=== PATIENT | female | born 1995 | race Caucasian/White ===

== ENCOUNTER 2019-07-27 13:00 | Emergency (ER) | payer OTHER, SELFPAY ==
--- NOTE | ~2019-07-27 | CT_ITS ---
EXAMINATION: CT lumbar spine wo con DATE: 07/27/2019 15:19 INDICATION: Back pain and sharp right leg pain. TECHNIQUE: Computed tomography (CT) of the lumbar spine was performed without intravenous contrast. A utomated exposure control and iterative reconstruction technique were employed. The dose-length produ ct was 1349.79 mGy-cm. COMPARISON: None FINDINGS: Mild lumbar levocurvature. Vertebral body heights are normal. No fractures. Mild disc height loss at 304 and L5-S1. Paravertebral soft tissues are unremarkable. Small amount of likely physiologic free f luid in the cul-de-sac. The following disc levels are specifically discussed: T11-T12: The disc does not extend beyond the endplate margin. There is mild bilateral facet joint ost eoarthritis. There is no neural foraminal stenosis. There is no central canal stenosis. T12-L1: The disc does not extend beyond the endplate margin. There is minimal bilateral facet joint o steoarthritis. There is no neural foraminal stenosis. There is no central canal stenosis. L1-L2: The disc does not extend beyond the endplate margin. There is mild bilateral facet joint osteo arthritis. There is no neural foraminal stenosis. There is no central canal stenosis. L2-L3: Disc is minimally bulging. There is mild bilateral facet joint osteoarthritis. There is no antonio ral foraminal stenosis. There is no central canal stenosis. L3-L4: Disc is mildly bulging. There is mild bilateral facet joint osteoarthritis. There is no neural foraminal stenosis. There is mild central canal stenosis. L4-L5: Disc is bulging. There is mild bilateral facet joint osteoarthritis. There is mild bilateral n eural foraminal stenosis. There is mild central canal stenosis. L5-S1: Disc is bulging with disc extrusion and left-sided predominant disc osteophyte complex with as sociated posterior S1 superior endplate Schmorl's node and retropulsion of a portion of the left post erior wall of the S1 vertebral body. There is mild right and minimal left facet joint osteoarthritis. There is mild bilateral neural foraminal stenosis. There is mild central canal stenosis along with m ild stenosis of the left lateral recess. IMPRESSION: 1. Mild lumbar levocurvature with mild spondylosis. Reviewed, dictated and finalized at location A. [employer]
[2019-07-27 13:07] VITALS: BP 146/64; PULSE 80; RESP 18; TEMP 36.6; O2SAT 100
[2019-07-27] MEDS: KETOROLAC (*BKC) 60 MG/2 ML VIAL IM (13:52)
[2019-07-27 14:42] VITALS: TEMP 36.6
--- NOTE | 2019-07-27 15:25 | ED.BACK ---
HPI - Back Pain/Injury General Chief Complaint: Back Pain/Injury Stated Complaint: leg pain Time Seen by Provider: 07/27/19 13:26 Source: patient Mode of arrival: EMS Limitations: no limitations History of Present Illness HPI Narrative: This is a 24 year old female that presents to the ER via EMS for low back pain since this morning. Reports it has been bothering her intermittently for the last week. Reports sudden onset sharp right sided low back pain this morning. No known injury or trauma. Reports the pain radiates down her right leg. Denies fever, saddle anesthesia, bowel/bladder incontinence, or numbness. Related Data Allergies Allergy/AdvReac Type Severity Reaction Status Date / Time No Known Allergies Allergy Verified 07/27/19 13:10 Review of Systems Review of Systems: Narrative: CONSTITUTIONAL: Denies fever MUSCULOSKELETAL: Reports back pain, joint pain, and myalgia. NEUROLOGIC: Denies numbness, or weakness. All systems reviewed & are unremarkable except as noted in HPI and below PMFSH Past Medical History Medical History (Updated 07/27/19 @ 16:01 by Chelly Waller PA-C) History of obesity Social History Social History (Updated 07/27/19 @ 15:59 by Chelly Waller PA-C) Substance use: never Exam Narrative: Exam Narrative: GENERAL: Well-appearing, well-nourished, and in no acute distress. HEAD: Normocephalic, atraumatic. EYES: EOMI. CHEST: Clear to auscultation. No respiratory distress. No wheezes rales or rhonchi HEART: Regular rate and rhythm. No murmur heard. Normal peripheral pulses. BACK: No midline spinal tenderness EXTREMITIES: Normal range of motion. No edema. Strength equal in bilateral lower extremities (5/5). Normal patellar reflexes bilaterally SKIN: Warm, dry, no rash. NEURO: No focal deficits. Alert and oriented x3. Normal gait PSYCH: Normal mood and affect Course Vital Signs Vital signs: Vital Signs Temperature 97.9 F 07/27/19 13:07 Pulse Rate 80 07/27/19 13:07 Respiratory Rate 18 07/27/19 13:07 Blood Pressure 146/64 H 07/27/19 13:07 Pulse Oximetry 100 07/27/19 13:07 Temperature 97.9 F 07/27/19 14:42 Pulse Rate 80 07/27/19 13:07 Respiratory Rate 18 07/27/19 13:07 Blood Pressure 146/64 H 07/27/19 13:07 Pulse Oximetry 100 07/27/19 13:07 MDM - Back Pain/Injury MDM Narrative Medical decision making narrative: Patient presents the emergency department for low back pain since this morning. She is afebrile and nontoxic-appearing. She is neurologically intact. Lumbar spine CT shows mild lumbar levocurvature with mild spondylosis. Patient was updated on case findings. She was given a dose of Toradol and Valium with improvement. She is to follow-up with her primary care doctor. She is given warnings to return to the ER Lab Data Labs: UCG Bedside Result Negative Reference Range: Negative Imaging Data Radiologist's impression: ITS Impressions Lumbar Spine CT 07/27/19 15:22 IMPRESSION: 1. Mild lumbar levocurvature with mild spondylosis. Critical Care Time Critical Care Time Critical Care Time: No Discharge Plan Discharge Clinical Impression: Lumbar radiculopathy Patient Disposition: Home, Self-Care Condition: Stable Instructions: Lumbar Radiculopathy (ED) Additional Instructions: Return to the ER if you experience weakness, numbness, bowel/bladder incontinence, or any other symptoms that are concerning to you Rest, use ice/heat, take anti-inflammatories (Aleve, Ibuprofen, Naproxen, etc) or Tylenol as needed for pain as well as muscle relaxer (Diazepam) as needed for pain. Muscle relaxers can make you drowsy, do not drive if you take this. Take steroid as prescribed Follow up with your primary care doctor Prescriptions: New diazepam 5 mg tablet 5 mg PO BID PRN (Reason: muscle spasm) Qty: 10 RF: 0 methylprednisolone [Medrol (Jt)] 4 mg tablets,dose pack See Rx Ins
[2019-07-27 16:19] VITALS: BP 156/87; PULSE 94; TEMP 36.6; O2SAT 98
== END 2019-07-27 16:33 | disposition home or self-care (01) ==
PROVIDERS: Emergency Provider Emergency Medicine
DX: M47.26 Other spondylosis with radiculopathy, lumbar region (principal); E66.9 Obesity, unspecified; Z68.41 Body mass index [BMI] 40.0-44.9, adult
CPT/HCPCS: 72131; 81025; 96372; 99284; J1885; J3360

== ENCOUNTER 2020-12-22 11:08 | Emergency (ER) | payer OTHER, SELFPAY ==
--- NOTE | ~2020-12-22 | US_ITS ---
EXAMINATION: US OB <=14 wk fetus w TV DATE: 12/22/2020 14:20 INDICATION: First trimester vaginal bleeding. TECHNIQUE: Real-time transabdominal and transvaginal pelvic ultrasound was performed. COMPARISON: Ultrasound 05/16/2018 FINDINGS: TRANSABDOMINAL ULTRASOUND: The uterus measures 7.7 x 3.7 x 4.8 cm. TRANSVAGINAL ULTRASOUND: The endometrial complex measures 10 mm in thickness. There is no visible int rauterine gestational sac. The right ovary measures 2.7 x 1.9 x 1.7 cm. The left ovary measures 2.2 x 1.6 x 2.2 cm. There is trace free fluid in the pelvis. IMPRESSION: 1. No visible intrauterine gestational sac, which may be normal in early . Spontaneous abor tion and ectopic are not excluded. Serial beta hCGs are recommended. Reviewed, dictated and finalized at location A. IMPRESSION: 1. No visible intrauterine gestational sac, which may be normal in early pregn clyde. Spontaneous and ectopic are not excluded. Serial beta hCGs are recommended.
[2020-12-22 11:38] VITALS: BP 148/96; PULSE 70; RESP 16; TEMP 36.8; O2SAT 100
[2020-12-22 12:44] LABS: Basophils Percent Auto 0.2 % (0.2-1.2); Eosinophils Absolute Auto 0.1 K/mm3 (0-0.3); Eosinophils Percent Auto 1.6 % (0-4.4); Hematocrit 35.8 % (37.0-47.0); Hemoglobin 11.1 g/dL (12.0-15.0); Immature Granulocyte Absolute 0.04 K/mm3 (0.00-0.031); Immature Granulocyte Percent A 0.5 % (0-0.5); Lymphocytes Absolute Auto 2.44 K/mm3 (0.9-3.2); Lymphocytes Percent Auto 27.6 % (18.3-44.2); Mean Corpuscular Hemoglobin 26.3 pg (26-34); Mean Corpuscular Volume 84.8 fl (80-100); Mean Platelet Volume 9.3 fl (7.4-10.4); Monocytes Absolute Auto 0.6 K/mm3 (0.1-0.6); Monocytes Percent Auto 6.8 % (2.6-8.5); Neutrophils Absolute Auto 5.6 K/mm3 (1.3-6.7); Neutrophils Percent Auto 63.3 % (45.5-73.1); Platelet Count Result 340 k/mm3 (150-375); Red Blood Count 4.22 M/mm3 (4.2-5.4); Red Cell Distribution Width 13.7 % (11.5-14.5); White Blood Count 8.8 K/mm3 (4.5-10.0)
--- NOTE | 2020-12-22 13:01 | ED.FEMALEGU ---
HPI - Female Genitourinary General Chief complaint: Vaginal Bleeding Stated complaint: poss miscarriage Time Seen by Provider: 12/22/20 12:09 Source: patient Mode of arrival: ambulatory Limitations: no limitations History of Present Illness HPI Narrative: Patient is a 25-year-old female who presents complaining of vaginal bleeding starting last p.m. Patient reports positive test on Sunday and scheduled in 3 weeks for 8-week appointment at [facility]. Patient reports noticing pink when she wiped yesterday and woke up with moderate amount of blood in underwear. She denies cramping. She denies all other complaints at this time. Patient is a G2, P1 and sees [facility]. MD elicited complaint: vaginal discharge and possible miscarriage Related Data Allergies Allergy/AdvReac Type Severity Reaction Status Date / Time No Known Allergies Allergy Verified 12/22/20 11:51 Review of Systems Review of Systems: Narrative: CONSTITUTIONAL: Denies fever, chills, or sweats. EYES: Denies visual changes, redness, or discharge. ENT: Denies rhinorrhea, congestion, sore throat, or otalgia. CARDIOVASCULAR: Denies chest pain, palpitations, or edema. RESPIRATORY: Denies cough or dyspnea. GASTROINTESTINAL: Denies abdominal pain, nausea, vomiting, or diarrhea. GENITOURINARY: Reports vaginal bleeding SKIN: Denies rash or itching. MUSCULOSKELETAL: Denies back pain, joint pain, or myalgia. NEUROLOGIC: Denies headache, numbness, dizziness, or weakness. PSYCHIATRIC: Denies anxiety or depression. PMFSH Past Medical History Medical History History of obesity Social History Social History (Updated 12/22/20 @ 13:04 by NATE Gar) Smoking status: Never smoker Alcohol intake: never Substance use: never Living arrangements: with family Gender identity (if verbalized by the patient): Female Comments At the time of signature, I have reviewed and agree with nursing past medical, surgical, social, and family history unless otherwise noted. Please see nursing chart for further information. There is no relevant family history pertinent to the presenting complaint. Exam Narrative: Exam Narrative: GENERAL: Well-appearing, well-nourished, and in no acute distress. HEAD: Normocephalic, atraumatic. EYES: EOMI. No redness or drainage. Conjunctiva are normal. ENT: Mucous membranes pink and moist. CHEST: No respiratory distress. HEART: Regular rate and rhythm. GI/: Soft, nontender without rebound, or guarding. No distention. Patient deferred pelvic at this time. EXTREMITIES: Normal range of motion. No edema. SKIN: Warm, dry, no rash. NEURO: No focal deficits. Alert and oriented x3. Gait steady. PSYCH: Normal affect. No signs of depression or anxiety. Course Vital Signs Vital signs: Vital Signs Temperature 36.8 C 12/22/20 11:38 Pulse Rate 70 12/22/20 11:38 Respiratory Rate 16 12/22/20 11:38 Blood Pressure 148/96 H 12/22/20 11:38 Pulse Oximetry 100 12/22/20 11:38 Temperature 36.8 C 12/22/20 11:38 Pulse Rate 80 12/22/20 14:52 Respiratory Rate 18 12/22/20 14:52 Blood Pressure 132/68 12/22/20 14:52 Pulse Oximetry 99 12/22/20 14:52 Reviewed-patient is informed that they may have pre-hypertension or hypertension based on a blood pressure reading. I recommend the patient call the primary care provider listed on their discharge instructions or a physician of their choice this week to arrange follow-up for further evaluation of possible pre-hypertension or hypertension. MDM - Female Genitourinary Lab Data Result diagrams: 12/22/20 12:33 Labs: Lab Results 12/22/20 12/22/20 12/22/20 Range/Units 12:33 12:33 12:33 WBC 8.8 (4.5-10.0) K/mm3 RBC 4.22 (4.2-5.4) M/mm3 Hgb 11.1 L (12.0-15.0) g/dL Hct 35.8 L (37.0-47.0) % MCV 84.8 (80-100) fl MCH 26.3 (26-34) pg MCHC 31.0 L (
[2020-12-22 13:08] LABS: Beta HCG Quantitative 37.59 mIU/ML
[2020-12-22 14:52] VITALS: BP 132/68; PULSE 80; RESP 18; O2SAT 99
== END 2020-12-22 14:54 | disposition home or self-care (01) ==
PROVIDERS: Emergency Medicine; Emergency Provider Nurse Practitioner; PCP Family Medicine
DX: O20.0 Threatened abortion (principal); Z3A.01 Less than 8 weeks gestation of pregnancy; R03.0 Elevated blood-pressure reading, without diagnosis of hypertension
CPT/HCPCS: 36415; 76801; 76817; 84702; 85025; 85461; 99284

== ENCOUNTER 2024-02-17 18:12 | Emergency (ER) | payer OTHER, SELFPAY | END 2024-02-17 20:40 | disposition left against medical advice (07) | LOC: ANHED 20:09 | PROVIDERS: PCP Family Medicine | DX: R11.2 Nausea with vomiting, unspecified (principal) | CPT/HCPCS: 99199 ==